=== PATIENT | female | born 1995 | race Caucasian/White ===

== ENCOUNTER → 2023-03-21 | Outpatient (REF) | LOC: M EMP 11:49 | PROVIDERS: ATTEND Family Medicine | DX: Z20.822 Contact with and (suspected) exposure to COVID-19 (principal) ==

== ENCOUNTER → 2024-10-29 | Outpatient (REF) | payer OTHER ==
[2024-10-29 19:37] LABS: RSV AMPLIFICATION NEGATIVE (NEGATIVE)
== END ==
LOC: M LAB REF 16:31
PROVIDERS: ATTEND Nurse Practitioner Family
DX: J06.9 Acute upper respiratory infection, unspecified (principal)

== ENCOUNTER → 2025-09-07 | Outpatient (REF) | payer OTHER | LOC: M LAB REF 17:07 | PROVIDERS: ATTEND Registered Nurse | DX: R30.0 Dysuria (principal) ==